=== PATIENT | female | born 1975 | race Caucasian/White ===

== ENCOUNTER 2023-08-10 19:19 | Emergency (ER) | payer BC, SELFPAY ==
[2023-08-10 19:22] VITALS: BP 133/84; PULSE 63; RESP 16; TEMP 36.7; O2SAT 100; BMI 25.7
--- NOTE | 2023-08-10 19:28 | DI.US.S_ITS ---
PROCEDURE: US PERIPH VENOUS LOW EXTREM LT INDICATIONS: EDEMA TECHNIQUE: Real-time imaging, as well as color and pulse Doppler interrogation, were performed of the lower extremity deep veins from the inguinal ligament to the popliteal fossa, with documentation of the visualized calf veins. COMPARISON: None. FINDINGS: The common femoral, femoral, popliteal, and the visualized calf veins are normally compressible, and free of intraluminal thrombus. Color and pulse Doppler demonstrate normal phasic intraluminal flow. There is normal augmentation response to distal compression maneuver. IMPRESSION: Negative examination for DVT. Dictated by: Glen Bermeo M.D. on 08/10/2023 at 20:29 Approved by: Glen Bermeo M.D. on 08/10/2023 at 20:29
--- NOTE | 2023-08-10 20:45 | ED.EXTPRO ---
HPI - Extremity Problem General Chief complaint: Extremity Problem,Nontraumatic Stated complaint: pain in lt calf/hist. of dvt Time Seen by Provider: 08/10/23 20:45 Source: patient Mode of arrival: Ambulatory History of Present Illness HPI Narrative: Patient is a 47-year-old female with [place] [address]C, history of DVT and PE presenting today with left calf pain. She reports that she went on an airplane about 8 days ago she returned for the last couple days she is had some left calf pain she does not remember injuring it although she is athletic. It does hurt walk she has no significant swelling. No chest pain shortness of breath or syncope. 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 She is no longer on hormones but was concerned today. Related Data Allergies Allergy/AdvReac Type Severity Reaction Status Date / Time No Known Drug Allergies Allergy Verified 08/10/23 19:30 Review of Systems Review of Systems ROS Unobtainable: All systems reviewed & are unremarkable except as noted in HPI and below Patient History Social History Smoking Status: Never smoker Smoking Status: Never smoker alcohol intake frequency: holidays/special occasions only Substance Use Type: does not use Exam Initial Vital Signs Initial Vital Signs: Vital Signs Temperature 98.0 F 08/10/23 19:22 Pulse Rate 63 08/10/23 19:22 Respiratory Rate 16 08/10/23 19:22 Blood Pressure 133/84 08/10/23 19:22 Pulse Oximetry 100 08/10/23 19:22 Oxygen Delivery Method Room Air 08/10/23 19:22 GENERAL: Well-appearing 47-year-old female CARDIOVASCULAR: peripheral pulses in tact, cap refill <2 sec RESPIRATORY: No respiratory distress, speaks in full sentences without difficulty EXTREMITIES: Normal range of motion, no clubbing or edema. Neurovascularly intact Left lower extremity calf is not swollen or tender no erythema Achilles tendon intact knee is stable she is slightly tender posterior calf put certainly not excruciating. NEUROLOGICAL: Cranial nerves II through XII grossly intact. Normal gait and speech. SKIN: Warm, dry, no petechiae, no rashes or lesions. Course Orders Ordered: ED Orders 08/10/23 19:28 US periph venous low extrem lt Stat Vital Signs Vital signs: Vital Signs - 8 hr 08/10/23 19:22 Temperature 98.0 F Pulse Rate 63 Respiratory Rate 16 Blood Pressure 133/84 Pulse Oximetry 100 Oxygen Delivery Method Room Air MDM - Extremity (Nontraumatic) Imaging Data US - DVT: Radiologist's Impression: PROCEDURE:? US PERIPH VENOUS LOW EXTREM LT ? INDICATIONS:? EDEMA ? TECHNIQUE:? Real-time imaging, as well as color and pulse Doppler interrogation, were performed of the lower extremity deep veins from the inguinal ligament to the popliteal fossa, with documentation of the visualized calf veins.? ? COMPARISON:? None. ? FINDINGS:? The common femoral, femoral, popliteal, and the visualized calf veins are normally compressible, and free of intraluminal thrombus.? Color and pulse Doppler demonstrate normal phasic intraluminal flow.? There is normal augmentation response to distal compression maneuver.? ? ? IMPRESSION:? Negative examination for DVT. ? ? Dictated by: Glen Bermeo M.D. on 08/10/2023 at 20:29 MDM Narrative Medical decision making narrative: Patient 47-year-old female with multiple risk factors for DVT presents today with left calf pain. Ultrasound is negative she is wearing compression socks. This time I do recommend repeat ultrasound if she is still having pain in about 7-10 days but no need for anticoagulation at this time. Suspicion is low she isn't have really any significant swelling. Discharge Plan Departure Patient Disposition: Home Clinical Impression: Strain of left calf muscle Instructions: DI for Calf Muscle Strain Activity Restrictions/Additional Instructions: *You have been diagnosed with left calf strain *What to do: At this time ultrasound is negative. However you are still having swelling pain you may require repeat ultrasound in about 1 week. Wear compression socks. Elevate and ice as needed. *Continue to take medications as directed Tylenol Motrin as needed *Follow up with your primary care provider in 2-3 days or call [phone] *Return to ER if you should have increasing pain swelling chest pain palpitations shortness of breath passing out or any new, worsening or concerning symptoms Referrals: Perla Walter MD [Primary Care Provider] - Stand Alone Forms: Patient Portal/API
== END 2023-08-10 20:50 | disposition home or self-care (01) ==
PROVIDERS: Emergency Provider Emergency Medicine; PCP Family Medicine
DX: S86.912A Strain of unspecified muscle(s) and tendon(s) at lower leg level, left leg, initial encounter (principal)
CPT/HCPCS: 93971; 99283